=== PATIENT | female | born 1990 | race Caucasian/White ===

== ENCOUNTER 2020-11-17 11:26 | Inpatient (IN) | payer BC ==
[2020-11-17] MEDS ORDERED: Oxytocin/Normal Saline 30 UNIT/500 ML BAG IV ONE (11:39)
--- NOTE | 2020-11-17 13:26 | US ---
PROCEDURE INFORMATION: Exam: US Biophysical Profile Without Non-Stress Test Exam date and time: 11/17/2020 12:38 PM Age: 30 years old Clinical indication: Other: Decreased movement; TECHNIQUE: Imaging protocol: US biophysical profile without non-stress testing. COMPARISON: No relevant prior studies available. FINDINGS: BIOPHYSICAL PROFILE: Breathin/2 Gross body movements: 0 tone: 2/2 Qualitative amniotic fluid: 2/2 Biophysical Profile Score: 8/8 IMPRESSION: Biophysical profile score is 6 out of 8.
[2020-11-17] MEDS ORDERED: Methylergonovine 0.2 MG/1 ML Amp IM PRN (15:10)
[2020-11-17] MEDS ORDERED: Tranexamic Acid 1,000 MG in Sodium Chloride 0.9% 100 ML IV PRN (15:10)
[2020-11-17] MEDS ORDERED: diphenhydrAMINE 50 MG/ML SDV IVPUSH PRN (15:10)
[2020-11-17] MEDS ORDERED: Misoprostol 400 MCG (4 X 100 MCG TAB) RECTAL PRN (15:10)
[2020-11-17] MEDS ORDERED: Citric Acid/Sodium Citrate Solution 30 ML Cup PO ONE (15:10)
[2020-11-17] MEDS ORDERED: Carboprost Tromethamine 250 MCG/1 ML Amp IM PRN (15:10)
[2020-11-17] MEDS ORDERED: ceFAZolin 2 GM in Premix Bag 1 BAG IV ONE (15:10)
[2020-11-17] MEDS ORDERED: Acetaminophen/oxyCODONE 325-5 MG Tab PO PRN (15:10)
[2020-11-17] MEDS ORDERED: Acetaminophen 325 MG Tab PO PRN (15:10)
[2020-11-17] MEDS ORDERED: Naloxone 2 MG/2 ML Syringe IVPUSH PRN (15:10)
[2020-11-17] MEDS ORDERED: ePHEDrine 50 MG/ML SDV IVPUSH PRN (15:10)
[2020-11-17] MEDS ORDERED: Oxytocin/Normal Saline 30 UNIT/500 ML BAG IV SCH (15:15)
[2020-11-17] MEDS ORDERED: Lactated Ringers 1,000 ML IV SCH (15:15)
[2020-11-17] MEDS ORDERED: Oxytocin/Normal Saline 60 UNIT/1,000 ML BAG ONE (15:22)
[2020-11-17] MEDS ORDERED: Lactated Ringers 1,000 ML IV ONE (16:00)
[2020-11-17] MEDS ORDERED: Dexamethasone 4 MG/ML SDV IV ONE (16:00)
[2020-11-17] MEDS ORDERED: Sodium Chloride 0.9% 10 ML Syringe IV ONE (16:00)
[2020-11-17] MEDS ORDERED: Ketorolac 30 MG/ML SDV IVPUSH ONE (16:00)
[2020-11-17] MEDS ORDERED: ePHEDrine 50 MG/ML SDV IV ONE (16:00)
[2020-11-17] MEDS ORDERED: Ondansetron 4 MG/2 ML SDV IV ONE (16:00)
[2020-11-17] MEDS ORDERED: Scopolamine 1.5 MG Transdermal Patch ONE (16:08)
--- NOTE | 2020-11-17 16:28 | OBOUT ---
DATE: 11/17/2020 TIME: 1135 to 1155. REASON FOR NST: 1. Intrauterine at 40 weeks, confirmed with 6-4/7 weeks ultrasound. 2. Decreased movement. 3. GBS negative. 4. G1, P0. NST INTERPRETATION: During this time period, heart tone baseline is approximately 130 to 140, at least two 15 x 15 beats per minute accelerations, making this strip reactive. Also, noted to be reassuring. Tocometer reveals irritability with potential for at least 1 to 2 contractions minimally felt by patient. ASSESSMENT: 1. Nonstress test, reactive and reassuring. 2. Tocometer with contractions. PLAN: Due to decreased movement and concerns and being over 40 weeks, biophysical profile was done, scored 8/10 total with NST as above, was undergoing continued monitoring, and did have right before her BPP, a deceleration down into the 60s with a rebound, and this lasted approximately 3 to 4 minutes. Subsequently, ultrasound was done, and thereafter heart tones were detected with accelerations, and then had at around 1330 another deceleration down into the 80s, and then at 1351 a similar deceleration, and then at approximately 1407 had a deceleration that dropped down into the 90s and rebounded. Subsequently, had another deceleration around 1453 lasting almost 5 to 7 minutes as low as in the 60s with me in the room and moving the Doppler and hearing heart tones during this time period. Due to nonreassuring status, I did discuss with patient proceeding to the in a stat fashion. I did discuss the risks, benefits, alternatives, complications of including but not limited to infection; bleeding; damage to organs such as bowel, bladder, tubes, uterus, and sometimes fetus; rarely needing a blood transfusion or further surgery, and rare maternal or . She understands, agrees, and wishes to proceed. Verbal and written consent obtained. Questions were answered. We will proceed to the OR as soon as crew is ready and available. At current time of dictation, heart tones are in the 130s to 140s and tocometer reveals contractions versus irritability every minute. Plan as above. We will proceed to the OR as soon as crew is ready and available. H and P has been written out for [employer]ANCH[employer]SULTANT and for purposes. Please see other dictations for further details. [facility] /[id number]
[2020-11-17] MEDS ORDERED: Scopolamine 1.5 MG Transdermal Patch TOP ONE (16:30)
[2020-11-17] MEDS: Lactated Ringers 1,000 ML IV SCH ×2 (16:30→17:27)
[2020-11-17] MEDS ORDERED: Promethazine 25 MG/ML SDV IM PRN (16:33)
[2020-11-17] MEDS ORDERED: fentaNYL Citrate/PF 1,500 MCG/30 ML PCA Vial ONE (16:43)
[2020-11-17] MEDS ORDERED: fentaNYL Citrate/PF 1,500 MCG/30 ML PCA Vial IV SCH (16:45)
[2020-11-17] MEDS: Simethicone 80 MG Tab.Chew PO SCH ×2 (17:23→21:42)
--- NOTE | 2020-11-17 17:23 | OR ---
DATE: 11/17/2020 PREOPERATIVE DIAGNOSES: 1. Intrauterine at 40 weeks confirmed by 6-4/7 week ultrasound. 2. Nonreassuring status. 3. Group B Streptococcus negative. 4. Gestational thrombocytopenia with platelets of 136. 5. G1, P0. POSTOPERATIVE DIAGNOSES: 1. Intrauterine at 40 weeks confirmed by 6-4/7 week ultrasound, delivered. 2. Nonreassuring status. 3. Group B Streptococcus negative. 4. Gestational thrombocytopenia with platelets of 136. 5. G1, P0. 6. Meconium-stained and bloody-stained fluid. 7. Placental abruption with bloody fluid as well as old blood with delivery of the placenta. PROCEDURE PERFORMED: Nonstress test followed by primary low transverse section with 2-layer uterine closure. FIRST ASSISTANTS: Maria G Morin MD and Scar Amin, PGY-3, asked to be present for delivery for baby. ANESTHESIA: Spinal. ESTIMATED BLOOD LOSS: 700 mL. IV FLUIDS: 200 mL Pitocin, 600 mL lactated Ringer's. URINE OUTPUT: 525 mL clear yellow. START: 1554. UTERINE INCISION: 1555. DELIVERY: 1556. STOP: 1615. FINDINGS: Female, score pending, weight 6 pounds 15 ounces. DESCRIPTION OF PROCEDURE IN DETAIL: After proper consent was obtained, the patient was brought to the operating room where spinal anesthetic was administered. Mcnamara was placed preoperatively under sterile condition. Abdomen was prepped and draped in normal sterile fashion using Betadine to quickly start the surgery. Skin incision was then made over lower abdomen in transverse Pfannenstiel-type fashion. This was carried down the fascia and scored in midline. Subcutaneous tissue was raked laterally bluntly and fascial incision was extended laterally with blunt technique. Fascial incision was extended superiorly and inferiorly with blunt technique rectus and pyramidalis muscles from the fascia. Rectus muscle was in midline with blunt technique. Abdominal cavity was entered in blunt technique. Incision was extended superiorly and inferiorly in blunt technique. Nam O large retractor was then introduced and used. Vesicouterine peritoneum was then identified, incised in transverse fashion with Matos scissors. Bladder flap was made digitally. Curvilinear incision was made on lower uterine segment at 1555 hours. Uterus was entered sharply. Meconium and blood-stained fluid returned. Uterine incision was then extended in transverse fashion using blunt technique. vertex was then delivered through the incision followed by rest of the without difficulty. There was bloody stained fluid, old blood noted with delivery of the baby and meconium-stained fluid. Mouth and nares were suctioned. Cord was doubly clamped and cut. Infant was brought over to team for resuscitation. Then, approximately 10 mL of cord blood was obtained for labs. Placenta was then delivered with gentle cord traction and fundal massage within 20 seconds. Old blood and blood clot were noted with delivery of the placenta. Uterine cavity was then cleared of all blood clots and debris with lap sponge. Montemayor clamps were used to grasp the incision. This was closed in running locked fashion and tied at lateral margins with 1-0 Vicryl. Second imbricating layer was applied and tied at lateral margins with 1-0 Vicryl. First inspection of the uterine incision revealed hemostasis. Nam O retractor was then removed and paracolic gutters were then cleared of all blood clots and debris with lap sponge. Anterior cul-de-sac was then irrigated copiously and all blood clots and debris removed. Second and final inspection of uterine incision and anterior cul-de-sac revealed hemostasis. Rectus muscles were then reapproximated in midline with [id number] stitch using 1-0 Vicryl. Subfascial tissues were found to be hemostatic and fascia was closed in running fashion and tied at lateral margins with 0 looped PDS. Subcutaneous tissue was irrigated copiously. Hemostasis was reassured. Skin was reapproximated with medium anjana. Sterile Aquacel dressing was applied. Uterine fundus was firm, massaged at the conclusion of the case -1 below umbilicus. No immediate complications were noted. Sponge, lap, and needle counts were correct. The patient received 2 g of Ancef preoperatively, Pitocin per protocol, and received Toradol at the conclusion of the case for pain control as well as a fentanyl [employer] REPRESENTATIVE [employer]INTING as she has had some issues with nausea and vomiting with anesthesia. Please see STEAMBLASTER notes and orders. Mother and are currently stable at the time of dictation. [facility] /[id number] [facility]
--- NOTE | 2020-11-17 17:54 | HP ---
PATIENT IDENTIFICATION: Matthew Parra is a 30-year-old, G1, P0, intrauterine at 40 weeks confirmed with 6-4/7 week ultrasound, who presents with decreased movement. HISTORY OF PRESENT ILLNESS: The patient presented for decreased movement. Did have some movement while doing monitoring strip with initial reactive nonstress test. Biophysical profile with JOAQUIM was subsequently ordered and immediately prior to this, there was a deceleration down into the 60s that lasted approximately at least a minute. Subsequently, BPP was done, scored 8/10 with an JOAQUIM in the 14 range. Continued monitoring ensued and the patient continued to have some decelerations with associated cramping feeling in her belly, nothing increasing in frequency or intensity. Initial nurse evaluation revealed to be 1 cm ballotable, 25% effaced, and this was rechecked immediately with deceleration that was noted with decision made to proceed to the OR shortly thereafter. Records called for reviewed as below and supplemented by patient's history. ALLERGIES: None. MEDICATIONS: vitamins, vitamin C, and iron sulfate daily. PAST MEDICAL/PAST SURGICAL HISTORY: Remarkable for shoulder surgery at age 21 related to some sort of injury issue described as rotator cuff surgery and wisdom teeth extraction. Past medical history of fibromyalgia, psoriasis, history of chickenpox as a child, and she is blood type A positive. FAMILY HISTORY: Father with anxiety. Maternal grandfather, cancer. Miscarriage and still births were noted in a sister with balanced translocation of chromosomes 6 and 7, p25, p13 with recurrent SABs, molar trophoblastic disease and they have different father, so Matthew is negative. Mother has multiple sclerosis. Negative family history of anesthesia or bleeding problems. SOCIAL HISTORY: The patient lives in [place] with her , Jorge Luis Parra. He works at [employer]. They live [place] town by [facility]. She denies any alcohol, tobacco, or drug use. REVIEW OF SYSTEMS: Otherwise fully reviewed and felt to be contributory only for the above. She denies any bleeding other than after stripping of the membranes. This has subsequently resolved. No leaking of fluid. No cough, cold, runny nose, headaches, visual changes, or upper abdominal pain. She has mild cramping abdominal pain. Denies any abdominal trauma. OBJECTIVE: Vital Signs: Blood pressure 120/77, heart rate 89, temperature 98.3. Appearance: Female, appears stated age, acting appropriate for age, nontoxic appearance. HEENT: Head is atraumatic. EOMs intact. PERRLA. No scleral icterus. No sore throat. Mucous membranes moist. Neck: No obvious tenderness. Lungs: Clear to auscultation bilaterally. No increased work of breathing. Heart: S1, S2. Regular rate and rhythm. Abdomen: Gravid. Deondre's indeterminate. Nontender, nondistended. Bowel sounds positive. No organomegaly, masses, or hernias. No rebound, rigidity, or guarding with monitors applied. : Normal external female genitalia. Normal position and presentation of urethra. Vaginal exam reveals to be 1 cm, 25% ballotable presentation. Extremities: Trace pedal edema. Deep tendon reflexes 2 to 3 out of 4 bilaterally and symmetric in the lower extremities. Psychiatric: Mood and affect are congruent. Judgment and insight are intact. Skin: Without cyanosis, clubbing, or jaundice. NST initially was found to be reactive and reassuring, however, with serial monitoring, there was noted to be decelerations noted as above and also dictated and documented in the nonstress test. Biophysical profile was done as above, scored 8/10 with reactive NST. CBC was done and revealed a white cell count 10.6, hemoglobin 11.3, platelets 136. Rapid COVID test was negative. ASSESSMENT: 1. Intrauterine at 40 weeks confirmed with 6-4/7 week ultrasound. 2. Nonreassuring status. Immediately prior to going the OR, tocometer did reveal irritability versus contractions every minute or less. Suspected abruption at that time. She was taken to the OR and proceed to the OR as soon as crew was ready and available for primary low transverse section. 3. Group B Streptococcus negative. 4. G1, P0. 5. Decreased movement as reason for presenting to the hospital. PLAN: Due to the nonreassuring status, I discussed at that time after monitoring and following closely with recurrent decelerations proceeding to the OR as soon as crew is ready and available in a stat fashion. I did discuss with her and her risks, benefits, alternatives, complications of including but not limited to infection; bleeding; damage to organs such as bowel, bladder, tubes, uterus, and sometimes fetus; rarely needing a blood transfusion or further surgery, and rare maternal or . She understood, agreed, and wished to proceed. Verbal and written consent obtained. Questions were answered and proceed to the OR as soon as crew was ready and available. Please see operative note and NST for further details. [facility] /[id number]
[2020-11-17] MEDS: Docusate Sodium 100 MG Cap PO PRN (21:42)
[2020-11-17] MEDS: Ketorolac 30 MG/ML SDV IVPUSH SCH (21:43)
[2020-11-18] MEDS: Ketorolac 30 MG/ML SDV IVPUSH SCH ×4 (04:07→22:53)
[2020-11-18] MEDS: Lactated Ringers 1,000 ML IV SCH (04:10)
[2020-11-18] MEDS: Prenatal Multivitamin with Calcium/Folic Acid/Iron Tab PO SCH (08:44)
[2020-11-18] MEDS: Ferrous Sulfate 325 MG Tab PO SCH ×2 (08:44→17:01)
[2020-11-18] MEDS: Docusate Sodium 100 MG Cap PO PRN (08:44)
[2020-11-18] MEDS: Simethicone 80 MG Tab.Chew PO SCH ×4 (08:44→22:52)
--- NOTE | 2020-11-18 13:32 | PN ---
DATE: 11/18/2020 Postop day #1, status post primary low transverse with 2-layer uterine closure for nonreassuring status with subsequent abruption noted at delivery. SUBJECTIVE: The patient has been tolerating p.o. No passing of flatus. Mcnamara still in. She is up to the side of the bed. The pain is under control with the WEAVING TEACHER fentanyl currently. OBJECTIVE: Vital Signs: Temperature 98.4, heart rate 76, blood pressure 92/50, respiratory rate 16. Lungs: Clear to auscultation bilaterally. Heart: S1, S2. Regular rate and rhythm. Abdomen: Firm uterus, -2 below umbilicus. Aquacel dressing appears to have some shadowing on the right that has been traced, has not increased in significant size and is nonsaturated. Extremities: No obvious calf pain. LABORATORY DATA: Pending is CBC today. ASSESSMENT AND PLAN: Postop day #1 status post primary low-transverse with 2-layer uterine closure for abruption with nonreassuring status. She had some gestational thrombocytopenia, platelets of 136,000 prior to surgery. We will do a CBC today and follow clinically and closely. I did discuss with them most likely discharge on Friday based on clinical status and events that have occurred. They understand and agree. We will continue to follow clinically and closely at this point in time for any other issues. [facility] /[id number]
[2020-11-18] MEDS ORDERED: Ibuprofen 800 MG Tab PO PRN (16:00)
[2020-11-19] MEDS: Ondansetron 4 MG/2 ML SDV IVPUSH PRN ×3 (01:18→10:28)
[2020-11-19] MEDS: Acetaminophen/oxyCODONE 325-5 MG Tab PO PRN ×2 (01:23→05:28)
[2020-11-19] MEDS: Ketorolac 30 MG/ML SDV IVPUSH SCH ×2 (05:41→12:20)
[2020-11-19] MEDS: Simethicone 80 MG Tab.Chew PO SCH (10:29)
[2020-11-19] MEDS: Prenatal Multivitamin with Calcium/Folic Acid/Iron Tab PO SCH (10:30)
[2020-11-19] MEDS: Docusate Sodium 100 MG Cap PO PRN (10:30)
--- NOTE | 2020-11-19 10:36 | DISCH ---
ADMITTING DIAGNOSES: 1. Intrauterine at 40 weeks, confirmed with 6 and 4/7 weeks ultrasound. 2. Nonreassuring status. 3. Group B Streptococcus negative. 4. Gestational thrombocytopenia. Platelets 136,000. 5. G1, P0. DISCHARGE DIAGNOSES: 1. Intrauterine at 40 weeks, confirmed with 6 and 4/7 weeks ultrasound - delivered. 2. Nonreassuring status. 3. Group B Streptococcus negative. 4. Gestational thrombocytopenia. Platelets 136,000. 5. G1, P0. 6. Meconium and bloody-stained fluid. 7. Abruption suspected and then signs of abruption noted at delivery. PROCEDURES PERFORMED: 1. NST followed by primary low transverse . 2. Two-layer uterine closure per Dr. Peng. HISTORY OF PRESENT ILLNESS: Please see H and P. SUMMARY OF HOSPITAL COURSE: The patient was admitted on the above date with above diagnoses, came in for decreased movements, had a biophysical profile, scored 8/10, but with serial evaluations started having decelerations occasionally and then had one that lasted over 5 minutes into the 60s followed by what appeared to be irritability or contractions every minute. She was brought to the OR in a stat fashion, primary low transverse and 2- layer uterine closure was done under spinal anesthesia with an EBL of 700 mL yielding a female, score 4 and 9, weighing 6 pounds 15 ounces. Please see op report for further details. Meconium-stained and blood-stained fluids were noted as well as findings of abruption noted with . Postop day #1, please see progress note. Postop day #2, date of discharge, the patient was tolerating p.o., was ambulating, urinating, passing flatus, requesting discharge as baby was sent to [facility] for anemia and need for blood transfusions. DISCHARGE EVALUATION/OBJECTIVE: Vital Signs: Temperature 98.7, heart rate 72, blood pressure 109/68, respiratory rate 16. Lungs: Clear to auscultation bilaterally. Heart: S1, S2. Regular rate and rhythm. Abdomen: Firm uterus. -1 below umbilicus. Aquacel dressing has some minimal shadowing on the right. Minimally increased in size less than 1 cm on all aspects. No saturation with minimal pain over this area. LABORATORY DATA: White cell count 9.9, hemoglobin 9.3, compared to predelivery hemoglobin of 11.3, and platelets of 133,000 compared to 136 prior to delivery and 121,000 the day before. CONDITION ON DISCHARGE COMPARED TO CONDITION ON ADMISSION: Improved. DISCHARGE INSTRUCTIONS: 1. Diet as tolerated. 2. Activity: No lifting more than 20 pounds. No sit-ups or straining and pelvic rest the next 6 weeks with immediate return to fertility discussed with the patient. Reasons to return or go to the emergency room were discussed with the patient in detail including but not limited to, temperature greater than 100.4, foul- smelling discharge, red or tender breasts, or increased vaginal bleeding, or increasing pain, drainage, or redness around the incision. DISCHARGE MEDICATIONS: [id number] Tylenol, ibuprofen. She has iron sulfate. She will take vitamin C as well as vitamins, and we will prescribe Zofran prior to her Percocet at 4 mg and then Percocet 5/325 1 to 2 q.6 hours p.r.n., #30, no refills given. I did discuss use of these medications, adverse and unwanted effects, as well as precautions with driving. FOLLOWUP: She has a followup on the at 9:30, standing appointment. I can certainly see her back at that time and did discuss this with her for staple removal. If her baby is in the NICU longer, she can see if she can see somebody in [place] or we can see her up until Friday and recommend staple removal within a week of surgery. The patient understands and agrees with the above treatment plan. Please see discharge paperwork for further details as well. [facility] /[id number]
[2020-11-19] MEDS: Ferrous Sulfate 325 MG Tab PO SCH (11:24)
== END 2020-11-19 11:40 | disposition home or self-care (01) | DRG 540 ==
LOC: DL.OBCHECK 11:26 → DL.MS 15:10 → OBSVTOIN 15:56 → DL.MS 15:56
PROVIDERS: ADMIT Family Medicine; ATTEND Family Medicine
PROC: 10D00Z1 Extraction of Products of Conception, Low, Open Approach (ICD-10-PCS; principal; 2020-11-17)
DX: O36.8130 Decreased fetal movements, third trimester, not applicable or unspecified (principal); O99.12 Other diseases of the blood and blood-forming organs and certain disorders involving the immune mechanism complicating childbirth; D69.6 Thrombocytopenia, unspecified; O45.93 Premature separation of placenta, unspecified, third trimester; O77.0 Labor and delivery complicated by meconium in amniotic fluid; Z3A.40 40 weeks gestation of pregnancy; Z37.0 Single live birth; Z28.82 Immunization not carried out because of caregiver refusal; Z20.822 Contact with and (suspected) exposure to COVID-19
CPT/HCPCS: 01961; 36415; 59025; 76819; 85027; 86850; 86900; 86901; A9270-GY; J0690; J1100; J1885; J2405; J2590; J3010; J7120; U0002